=== PATIENT | female | born 2000 | race Caucasian/White ===

== ENCOUNTER → 2023-05-05 | Outpatient (CLI) | payer BC ==
--- NOTE | 2023-05-05 14:58 | NM ---
EXAMINATION TYPE: NM hepatobiliary w CCK DATE OF EXAM: 05/05/2023 COMPARISON: NONE CLINICAL INDICATION: Female, 22 years old with history of R10.9 UNSPECIFIED ABDOMINAL PAIN; TECHNIQUE: After the intravenous administration of 5.0 mCi Tc 99m Mebrofenin hepatobiliary scintigrap hy is performed. Immediate images post injection. FINDINGS: There is satisfactory initial accumulation of tracer by the liver. The gallbladder is visualized wit hin 6 minutes. The small bowel activity is noted within 30 minutes. At one hour CCK was administere d, patient was injected with 1.64 mcg of Kinevac, and gallbladder ejection fraction is calculated at 94 %, in the normal range. IMPRESSION: 1. No cystic or common bile duct obstruction to suggest acute cholecystitis. 2. 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
== END | disposition home or self-care (01) ==
LOC: RADNMMAIN 12:36
PROVIDERS: ATTEND Internal Medicine
DX: K82.8 Other specified diseases of gallbladder (principal); F90.9 Attention-deficit hyperactivity disorder, unspecified type
CPT/HCPCS: 78227; A9537; J2805